=== PATIENT | female | born 1995 ===

== ENCOUNTER 2018-09-11 13:18 | Emergency (ER) | payer MEDICAID ==
[2018-09-11 13:23] VITALS: BP 123/81; PULSE 87; RESP 16; TEMP 98.3; O2SAT 98
--- NOTE | 2018-09-11 15:10 | ED PDOC ---
HPI: Skin/Bite Injury Time Seen by Provider: 09/11/18 13:31 Chief Complaint (Nursing): Abnormal Skin Integrity Chief Complaint (Provider): Rash History Per: Patient History/Exam Limitations: no limitations Onset/Duration Of Symptoms: Days (x3-4) Current Symptoms Are (Timing): Still Present Additional Complaint(s): 23 year old female presents to the ED for evaluation of a rash on her right groin for the last 3-4 days. Patient states that initially it was very itchy, but now it feels more like a burning sensation. She reports using a&d ointment, but believes it made it worse rather than better. Denies similar symptoms in the past or other systemic symptoms. PMD: cannot recall Past Medical History Reviewed: Historical Data, Nursing Documentation, Vital Signs Vital Signs: Last Vital Signs Temp 98.3 F 09/11/18 13:21 Pulse 87 09/11/18 13:21 Resp 16 09/11/18 13:21 BP 123/81 09/11/18 13:21 Pulse Ox 98 09/11/18 13:21 - Medical History PMH: No Chronic Diseases - Surgical History Surgical History: No Surg Hx - Family History Family History: States: Unknown Family Hx - Social History Current smoker - smoking cessation education provided: No Alcohol: Social Drugs: Denies - Home Medications Home Medications: Ambulatory Orders Medication Instructions Recorded Clotrimazole 1% Cream [Lotrimin 1% 1 applic TOP BID #2 tube 09/11/18 CREAM] - Allergies Allergies/Adverse Reactions: Allergies Allergy/AdvReac Type Severity Reaction Status Date / Time No Known Allergies Allergy Verified 09/11/18 13:23 Review of Systems ROS Statement: Except As Marked, All Systems Reviewed And Found Negative Skin: Positive for: Rash (right groin, itchy but now burning) Physical Exam - Reviewed Nursing Documentation Reviewed: Yes Vital Signs Reviewed: Yes - Physical Exam Appears: Positive for: No Acute Distress Head Exam: Positive for: ATRAUMATIC, NORMOCEPHALIC Skin: Positive for: Warm, Dry, Rash (erythematous rash on bilateral groin, more prominent on right, with satellite lesions) Eye Exam: Positive for: Normal appearance Neurologic/Psych: Positive for: Alert, Oriented (x3) - ECG O2 Sat by Pulse Oximetry: 98 (RA) Pulse Ox Interpretation: Normal Medical Decision Making Medical Decision Making: Time: 1500 Initial Impression: yeast infection Initial Plan: --Pt is to be d/c with referral [facility] and a script for Lotrimin. Scribe Attestation: Documented by Cyndee Rodriguez, acting as a scribe for Rosa Maria Allen PA-C Provider Scribe Attestation: All medical record entries made by the Scribe were at my direction and personally dictated by me. I have reviewed the chart and agree that the record accurately reflects my personal performance of the history, physical exam, medical decision making, and the department course for this patient. I have also personally directed, reviewed, and agree with the discharge instructions and disposition. Disposition - Clinical Impression Clinical Impression: Yeast infection - Patient ED Disposition Is Patient to be Admitted: No Counseled Patient/Family Regarding: Diagnosis, Need For Followup, Rx Given - Disposition [facility] Disposition: Routine/Home Disposition Time: 15:04 Condition: STABLE Prescriptions: Clotrimazole 1% Cream [Lotrimin 1% CREAM] 1 applic TOP BID #2 tube Instructions: Yeast Infection (DC) Forms: [employer] (Korean)
== END 2018-09-11 15:20 | disposition home or self-care (01) ==
LOC: H.ER 13:18
DX: B37.9 Candidiasis, unspecified (principal)